=== PATIENT | female | born 1990 | race Caucasian/White ===

== ENCOUNTER 2016-11-18 08:08 | Emergency (ER) | payer MEDICAID ==
[~2016-11-18] VITALS: Ht 154.9 cm; Wt 69.0 kg
[~2016-11-18 08:08] MED LIST: HYDR-906 PO; IBUP-1542 PO
[2016-11-18 08:10] VITALS: Ht 154.9 cm; Wt 69.0 kg
[2016-11-18] MEDS ORDERED: ALBU8.5H3 INH (08:30)
[2016-11-18] MEDS ORDERED: BENZ100C70 PO (08:30)
--- NOTE | 2016-11-18 08:33 | ERD ---
ER Documentation Chief Complaint Date/Time DATE: 11/18/16 TIME: 08:32 Chief Complaint pt bib self with c/o cough and feeling sob for a few days HPI Patient is an otherwise healthy 26-year-old female who states she has had 3 days of cough and on and off shortness of breath. Denies fever. Denies nausea or vomiting. She took Motrin. Tolerating oral intake. ROS All systems reviewed and are negative except as per history of present illness. Medications Home Meds Active Scripts Albuterol Sulfate* (Proair HFA*) 8.5 Gm Hfa.aer.ad, 2 PUFF INH Q4, #1 INHALER Prov:STEF RODRIGUEZ PA-C 11/18/16 Benzonatate* (Tessalon Perle*) 100 Mg Capsule, 100 MG PO Q8H Y for COUGH, #20 CAP Prov:STEF RODRIGUEZ PA-C 11/18/16 Hydrocodone/Acetaminophen ([place] 5-325 Tablet) 1 Each Tablet, 1 TAB PO Q6H Y for PAIN, #7 TAB Prov:BEBE CAMARA 11/03/16 Ibuprofen* (Motrin*) 600 Mg Tab, 600 MG PO Q6, #30 TAB Prov:BEBE CAMARA 11/03/16 Allergies Allergies: Coded Allergies: No Known Allergy (Verified , 04/01/14) PMhx/Soc History of Surgery: Yes Anesthesia Reaction: No Hx Neurological Disorder: No Hx Respiratory Disorders: No Hx Cardiac Disorders: No Hx Psychiatric Problems: No Hx Miscellaneous Medical Probl: Yes (dx: FT) Hx Alcohol Use: No Hx Substance Use: No Hx Tobacco Use: No FmHx Family History: No diabetes Physical Exam Vitals Vital Signs Date Time Temp Pulse Resp B/P Pulse Ox O2 Delivery O2 Flow Rate FiO2 11/18/16 08:10 99.1 98 16 120/74 97 Physical Exam Const: [] Head: Atraumatic Eyes: Normal Conjunctiva ENT: Normal External Ears, Nose and Mouth. Neck: Full range of motion..~ No meningismus. Resp: Clear to auscultation bilaterally Cardio: Regular rate and rhythm, no murmurs Abd: Soft, non tender, non distended. Normal bowel sounds Skin: No petechiae or rashes Back: No midline or flank tenderness Ext: No cyanosis, or edema Neur: Awake and alert Psych: Normal Mood and Affect Procedures/MDM Patient presents with URI. Vital signs are normal and exam is normal. She is discharged with Tessalon Perles and albuterol inhaler. Patient counseled regarding my diagnostic impression and care plan. Prior to discharge all questions answered. Pt agrees with treatment plan and understands strict return precautions. Pt is instructed to follow up with primary care provider within 24- 48 hours. Precautionary instructions provided including instructions to return to the ER if not improving or for any worsening or changing symptoms or concerns. Departure Diagnosis: Primary Impression: URI, acute Condition: Stable Patient Instructions: Uri, Viral, No Abx (Adult) Additional Instructions: Call your primary care doctor TOMORROW for an appointment during the next 1-2 days.See the doctor sooner or return here if your condition worsens before your appointment time. STEF RODRIGUEZ PA-C Nov 18, 2016 08:33
== END 2016-11-18 08:38 | disposition home or self-care (01) ==
LOC: FTE 08:08
DX: J06.9 Acute upper respiratory infection, unspecified (principal)
CPT/HCPCS: 99284

== ENCOUNTER 2018-07-30 08:49 | Emergency (ER) | payer SELFPAY ==
[~2018-07-30] VITALS: Ht 149.9 cm; Wt 79.0 kg
[~2018-07-30 08:49] MED LIST changes: +ALBU8.5H8 INH; +BENZ-6 PO; +HYDR-4011 PO; -HYDR-906 PO
[2018-07-30 08:55] VITALS: BP 138/85; PULSE 79; RESP 19; Ht 149.9 cm; Wt 79.0 kg
[2018-07-30] MEDS ORDERED: NAPR-985 PO (10:29)
--- NOTE | 2018-07-30 15:49 | ERD ---
ER Documentation Chief Complaint Chief Complaint lower abdominal pain, nausea x 4 days HPI 27 yr old female complaining of lower abdominal pain x 4 days. + Nausea. No vomiting. Took tylenol yesterday with no alleviation. Has normal urination bowel movement. LNMP June 29. Denies medical problems. NKDA. Surgical history denies. Social history denies ROS All systems reviewed and are negative except as per history of present illness. Medications Home Meds Active Scripts Naproxen* (Naprosyn*) 500 Mg Tablet, 500 MG PO BID PRN for PAIN AND/OR INFLAMMATION, #30 TAB Prov:AMY HOANG PA-C 07/30/18 Albuterol Sulfate* (Proair HFA*) 8.5 Gm Hfa.aer.ad, 2 PUFF INH Q4, #1 INHALER Prov:STEF RODRIGUEZ PA-C 11/18/16 Benzonatate* (Tessalon Perle*) 100 Mg Capsule, 100 MG PO Q8H PRN for COUGH, #20 CAP Prov:STEF RODRIGUEZ PA-C 11/18/16 Hydrocodone/Acetaminophen ([place] 5-325 Tablet) 1 Each Tablet, 1 TAB PO Q6H PRN for PAIN, #7 TAB Prov:BEBE CAMARA 11/03/16 Ibuprofen* (Motrin*) 600 Mg Tab, 600 MG PO Q6, #30 TAB Prov:BEBE CAMARA 11/03/16 Allergies Allergies: Coded Allergies: No Known Allergy (Verified , 04/01/14) PMhx/Soc Medical and Surgical Hx: pt denies Medical Hx, pt denies Surgical Hx History of Surgery: No Anesthesia Reaction: No Hx Neurological Disorder: No Hx Respiratory Disorders: No Hx Cardiac Disorders: No Hx Psychiatric Problems: No Hx Miscellaneous Medical Probl: No Hx Alcohol Use: No Hx Substance Use: No Hx Tobacco Use: No Smoking Status: Never smoker Physical Exam Vitals Vital Signs Date Temp Pulse Resp B/P (MAP) Pulse Ox O2 O2 Flow FiO2 Time Delivery Rate 07/30/18 99.7 79 19 138/85 99 08:55 (102) Physical Exam GENERAL: The patient is well-appearing, well-nourished, in no acute distress HEENT: Atraumatic. Conjunctivae are pink. Pupils equal, round, and reactive to light. There is no scleral icterus. Tympanic membranes clear bilaterally. Oropharynx clear. NECK: C-spine is soft and supple. There is no meningismus. There is no cervical lymphadenopathy. CHEST: Clear to auscultation bilaterally. There are no rales, wheezes or rhonchi. HEART: Regular rate and rhythm. No murmurs, clicks, rubs or gallops. ABDOMEN:Soft, nontender and nondistended. Good bowel sounds. No rebound or guarding. No gross peritonitis. No gross organomegaly or masses. Result Diagram: 07/30/1832 07/30/1832 Results 24 hrs Laboratory Tests Test 07/30/18 09:32 07/30/18 09:40 White Blood Count 7.2 10^3/ul Red Blood Count 4.74 10^6/ul Hemoglobin 13.3 g/dl Hematocrit 38.4 % Mean Corpuscular Volume 81.0 fl Mean Corpuscular Hemoglobin 28.1 pg Mean Corpuscular Hemoglobin Concent 34.6 g/dl Red Cell Distribution Width 12.8 % Platelet Count 194 10^3/UL Mean Platelet Volume 12.5 fl Immature Granulocytes % 0.100 % Neutrophils % 62.3 % Lymphocytes % 28.0 % Monocytes % 6.8 % Eosinophils % 2.1 % Basophils % 0.7 % Nucleated Red Blood Cells % 0.0 /100WBC Immature Granulocytes # 0.010 10^3/ul Neutrophils # 4.5 10^3/ul Lymphocytes # 2.0 10^3/ul Monocytes # 0.5 10^3/ul Eosinophils # 0.2 10^3/ul Basophils # 0.1 10^3/ul Nucleated Red Blood Cells # 0.0 10^3/ul Urine Color STRAW Urine Clarity CLEAR Urine pH 5.0 Urine Specific Carmine 1.011 Urine Ketones NEGATIVE mg/dL Urine Nitrite NEGATIVE mg/dL Urine Bilirubin NEGATIVE mg/dL Urine Urobilinogen NEGATIVE mg/dL Urine Leukocyte Esterase NEGATIVE Ollie/ul Urine Hemoglobin NEGATIVE mg/dL Urine Glucose NEGATIVE mg/dL Urine Total Protein NEGATIVE mg/dl Sodium Level 140 mmol/L Potassium Level 4.0 mmol/L Chloride Level 106 mmol/L Carbon Dioxide Level 26 mmol/L Anion Gap 8 Blood Urea Nitrogen 11 mg/dl Creatinine 0.59 mg/dl Est Glomerular Filtrat Rate mL/min > 60 mL/min Glucose Level 101 mg/dl Calcium Level 9.6 mg/dl Total Bilirubin 0.5 mg/dl Direct Bilirubin 0.00 mg/dl Indirect Bilirubin 0.5 mg/dl Aspartate Amino Transf (AST/SGOT) 18 IU/L Alanine Aminotransferase (ALT/SGPT) 29 IU/L Alkaline Phosphatase 66 IU/L Total Protein 7.3 g/dl Albumin 4.3 g/dl Globulin 3.00 g/dl Albumin/Globulin Ratio 1.43 Lipase 56 U/L POC Beta HCG, Qualitative NEGATIVE Procedures/MDM DIAGNOSTIC IMAGING REPORT Patient: BECKY HUGGINS : 1990 Age: 27 Sex: F MR #: [id number] DOS: 07/30/18 0927 Ordering MD: ERIN HOANG PA-C Location: FT Room/Bed: PROCEDURE: US Pelvis. CLINICAL INDICATION: pelvic pain TECHNIQUE: Multiple sonographic images of the pelvis were obtained utilizing transabdominal and endovaginal technique. The images were reviewed on a PACS workstation. COMPARISON: 11/03/2016 FINDINGS: The uterus is normal in size with a normal appearance of the myometrium. The uterus measures 9.0 x 4.4 x 5.3 cm. The endometrial stripe is homogeneous in appearance and has the thickness of 13 mm. The ovaries are normal in size and echogenicity. Normal Doppler flow is identified in both ovaries. The right ovary measures 2.3 x 1.7 x 2.1 cm. The left ovary measures 3.3 x 2.4 x 2.4 cm. Small amount of free fluid is present within the pelvis. RPTAT: AA IMPRESSION: Small amount of free fluid in the posterior cul-de-sac. Otherwise unremarkable. MDM: 27-year-old female presenting with pelvic pain. I have low suspicion for pelvic abnormality or emergency. I have low suspicion for infectious process. I will suspicion for other acute abdominal emergencies. Patient ultrasound blood work and urine is within normal limits. Exam is non-concerning with normal vitals. Patient is discharged with strict ER precautions and told to follow-up with primary care within 1 to 2 days for close evaluation. Patient is discharged with supportive medications. All questions answered at discharge Departure Diagnosis: Primary Impression: Pelvic pain Condition: Stable Patient Instructions: Pelvic Pain, Unknown Cause Referrals: [facility] YOU HAVE RECEIVED A MEDICAL SCREENING EXAM AND THE RESULTS INDICATE THAT YOU DO NOT HAVE A CONDITION THAT REQUIRES URGENT TREATMENT IN THE EMERGENCY DEPARTMENT. FURTHER EVALUATION AND TREATMENT OF YOUR CONDITION CAN WAIT UNTIL YOU ARE SEEN IN YOUR DOCTORS OFFICE WITHIN THE NEXT 1-2 DAYS. IT IS YOUR RESPONSIBILITY TO MAKE AN APPOINTMENT FOR FOLOW-UP CARE. IF YOU HAVE A PRIMARY DOCTOR --you should call your primary doctor and schedule an appointment IF YOU DO NOT HAVE A PRIMARY DOCTOR YOU CAN CALL OUR PHYSICIAN REFERRAL HOTLINE AT IF YOU CAN NOT AFFORD TO SEE A PHYSICIAN YOU CAN CHOSE FROM THE FOLLOWING [facility] [id number] [facility] [address] [facility] [address] [facility] [address] [facility]. [facility] [address] [facility]. [facility]. [address] Additional Instructions: FOLLOW UP WITH YOUR PRIMARY CARE PHYSICIAN TOMORROW.Return to this facility if you are not improving as expected. AMY HOANG PA-C July 30, 2018 15:49
== END 2018-07-30 11:02 | disposition home or self-care (01) ==
LOC: FTE 08:49
DX: R10.2 Pelvic and perineal pain (principal); R11.0 Nausea
CPT/HCPCS: 36415; 76830; 76856; 80053; 81003; 81025; 83690; 85025